=== PATIENT | female | born 1975 | race American Indian/Alaskan Native ===

== ENCOUNTER 2017-08-08 15:11 | Emergency (ER) | payer MEDICARE ==
--- NOTE | 2017-08-08 20:47 | XRay Report ---
FINAL REPORT PROCEDURE: XR ANKLE 3+V LT TECHNIQUE: Left ankle, three views HISTORY: left ankle pain COMPARISON: No prior studies are available for comparison. FINDINGS: No acute fracture or dislocation is seen. Ankle mortise and talar dome are intact. IMPRESSION: No acute fracture or dislocation is seen involving the ankle
--- NOTE | 2017-08-08 20:48 | XRay Report ---
FINAL REPORT PROCEDURE: XR FOOT 3+V LT TECHNIQUE: Left foot, three views HISTORY: let foot pain COMPARISON: No prior studies are available for comparison. FINDINGS: There is an acute minimally displaced fracture through the base of the 4th metatarsal. Otherwise no fracture or joint dislocation is seen. No radiopaque foreign body is seen. No focal osseous lesion. IMPRESSION: Fracture through the proximal 4th metatarsal
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
[2017-08-09] MEDS ORDERED: PERCOCET 5/325 PO ONE (02:08)
[2017-08-09 02:53] VITALS: BP 160/88
== END 2017-08-09 03:30 | disposition home or self-care (01) ==
LOC: ED 15:11
DX: S92.342A Displaced fracture of fourth metatarsal bone, left foot, initial encounter for closed fracture (principal); S99.922A Unspecified injury of left foot, initial encounter; L08.9 Local infection of the skin and subcutaneous tissue, unspecified; M25.572 Pain in left ankle and joints of left foot; F17.200 Nicotine dependence, unspecified, uncomplicated; X58.XXXA Exposure to other specified factors, initial encounter; Y93.9 Activity, unspecified; Y99.9 Unspecified external cause status; Y92.89 Other specified places as the place of occurrence of the external cause